=== PATIENT | male | born 1995 | race Caucasian/White ===

== ENCOUNTER 2019-07-16 11:44 | Emergency (ER) | payer OTHER ==
[~2019-07-16] VITALS: Ht 185.4 cm; Wt 81.8 kg
[2019-07-16 12:03] VITALS: TEMP 98.7
[2019-07-16] MEDS ORDERED: WELLBUTRIN 100100 MG PO (12:52)
[2019-07-16] MEDS ORDERED: VALTREX 50500 MG/TAB PO (12:52)
[2019-07-16 14:20] VITALS: BP 125/77; PULSE 76
== END 2019-07-16 14:20 | disposition home or self-care (01) ==
LOC: COL.ER 12:08
DX: G43.909 Migraine, unspecified, not intractable, without status migrainosus (principal); F17.210 Nicotine dependence, cigarettes, uncomplicated
CPT/HCPCS: J1885; J2405